=== PATIENT | male | born 1945 | race Caucasian/White ===

== ENCOUNTER 2020-02-15 06:30 | Day surgery (SDC) | payer OTHER, MEDICARE, BC ==
[~2020-02-15] VITALS: Ht 175.3 cm; Wt 86.6 kg
[~2020-02-15 06:30] MED LIST: CHLORTHALIDONE25 MG PO; COREG12.5 MG PO; COZAAR100 MG PO; LIPITOR40 MG PO
--- NOTE | 2020-02-15 08:25 | NUR ---
02/15/20 0825 Lupe Ventura 0820 PATIENT AWAKE BUT DROWSY. DENIES PAIN OR NAUSEA. OXYGEN OFF. ROOM AIR SATS >92%. PASSING GAS.
--- NOTE | 2020-02-17 11:20 | OR ---
[facility] [address] [place], [place] [address] Signed DATE OF OPERATION: 02/15/2020 SURGEON: Elias Ragland MD PREOPERATIVE DIAGNOSES: 1. Episodic rectal bleeding and grade 2 hemorrhoidal disease. 2. History of polyps of colon. POSTOPERATIVE DIAGNOSES: 1. Internal hemorrhoidal changes. 2. Flat polyp of proximal ascending colon. PROCEDURE: Total colonoscopy to cecum with mucosal lift and endoscopic tattoo marking of proximal polyp with excision by snare technique and morcellation. ANESTHESIA: Intravenous sedation, fentanyl 100 mcg and Versed 4 mg. INDICATION: This 74-year-old white man is patient of Dr. Dubon in [place]. He was seen by me in August for consideration of colonoscopy, but due to the viral pandemic, elective colonoscopies were delayed. He now presents for colonoscopy. He has had episodic rectal bleeding from time to time and he is known to have clinical findings of a grade 2 hemorrhoidal problem. He did undergo colonoscopy about 8 years ago and was said to have polyps and he has had no followup since that time. He is admitted at this time to undergo colonoscopy. He understands the risks of bleeding, infection, perforation. FINDINGS: The prep was excellent. Complete colonoscopy was undertaken of the cecum. He did have some internal hemorrhoidal changes, but there were not extensive. Of great note was a flat mucosal polyp of the proximal ascending colon. This was excised with mucosal lift technique with additional reapproximation of mucosa with EndoClips. DESCRIPTION OF PROCEDURE: The patient was brought to the endoscopy suite and placed in lateral decubitus position. Electronically Signed By: ELIAS RAGLAND MD 02/17/20 1120 PATIENT NAME: NATTY PEARSON OPERATIVE REPORT DATE OF : 49 REPORT #: [id number] PHYSICIAN: ELIAS RAGLAND MD PCP: MAXWELL DUBON MD REPORT IS CONFIDENTIAL AND NOT TO BE RELEASED WITHOUT AUTHORIZATION [facility] [address], [place] [address] Signed Given intravenous sedation to the point of slurred speech and nystagmus with full cardiopulmonary monitoring. Digital rectal examination showed normal prostate. An Olympus video colonoscope was passed in the rectum and manipulated throughout the colon, ultimately passed into the right colon. There was found to be a flat mucosal polyp of the proximal ascending colon. This measured about 2 cm in total length I think. Endomucosal resection with mucosal lift technique was deemed advisable. Using spot tattoo ink and a sclerotherapy needle, the central portion of the polyp was impaled and injected lifting the mucosa away from the underlying submucosa. Using the hot snare polypectomy technique, the polyp was then excised. Incomplete excision was noted. This engagement of the snare was undertaken and multiple morcellation excisions of the partially excised polyp was undertaken. Given the extent of the polyp and so forth, mucosal reapproximation was deemed advisable. Using Endoclip devices, a few small and a few wide mucosa were completely reapproximated. The scope was then advanced to the cecum, which was not far away and it appeared normal. The scope was then withdrawn and careful examination throughout showed no sign of other abnormalities. Retroflexed view of the rectum showed internal hemorrhoidal changes to a minor degree. The scope was removed and the patient was taken to the recovery room in good condition. CONCLUDING DIAGNOSIS: Polyp of proximal ascending colon, flat and notable. PLAN: We will review pathology of the polyp. I would recommend repeat colonoscopy in one year. Additional evaluation for hemorrhoidal disease will be undertaken as well. Elias Ragland MD JM/MODL /[id number] cc: Maxwell Dubon MD Copies: MAXWELL DUBON MD Electronically Signed By: ELIAS RAGLAND MD 02/17/20 1120 PATIENT NAME: NATTY PEARSON OPERATIVE REPORT DATE OF : 49 REPORT #: [id number] PHYSICIAN: ELIAS RAGLAND MD PCP: MAXWELL DUBON MD REPORT IS CONFIDENTIAL AND NOT TO BE RELEASED WITHOUT AUTHORIZATION [facility] [address] [place] [id number] Signed ~ Electronically Signed By: ELIAS RAGLAND MD 02/17/20 1120 PATIENT NAME: NATTY PEARSON OPERATIVE REPORT DATE OF : 49 REPORT #: [id number] PHYSICIAN: ELIAS RAGLAND MD PCP: MAXWELL DUBON MD REPORT IS CONFIDENTIAL AND NOT TO BE RELEASED WITHOUT AUTHORIZATION
--- NOTE | 2020-02-19 11:56 | PATH ---
[facility] [address] [place], [place] [address] Signed SPECIMEN(S): A ASCENDING POLYP SPECIMEN SOURCE: A. ASCENDING POLYP CLINICAL HISTORY: Colonoscopy. History of polyps. MICROSCOPIC DESCRIPTION: Histologic sections of all submitted blocks are examined by light microscopy. These findings, together with the gross examination, support the pathologic diagnosis. FINAL PATHOLOGIC DIAGNOSIS: Colon, ascending, polyp, polypectomy: - Fragments of tubular adenoma. - Negative for high-grade dysplasia or malignancy. NAL:cml:C2NR GROSS DESCRIPTION: The specimen, labeled "BP, 1," and designated on the requisition "ascending polyp," is received in formalin and consists of five andrade soft tissue polypoid fragments that measure 0.4 cm in greatest dimension. The specimen is entirely submitted in cassette (A1). Note: Specimen appears previously inked black and sectioned; submitting as received in container. AT (under the direct supervision of a pathologist) The Gross Description was prepared using a voice recognition system. The report was reviewed for accuracy; however, sound-alike word errors, addition and/or deletions may occur. If there is any question about this report, please contact Client Services. PERFORMING LABORATORY: The technical component was performed by [facility], [address] [place] [id number] (Chief Nursing Executive: Shawna Joya MD; CLIA# [id number]). [facility], [address] [address] (CLIA# [id number]). Diagnostician: Skylar Perez MD Pathologist Electronically Signed 02/19/2020 PATIENT NAME: NATTY PEARSON PATHOLOGY DATE OF : 49 REPORT #: [id number] PHYSICIAN: [facility] PCP: MAXWELL DUBON MD REPORT IS CONFIDENTIAL AND NOT TO BE RELEASED WITHOUT AUTHORIZATION [address] [address] Signed Copies: ~ PATIENT NAME: NATTY PEARSON PATHOLOGY DATE OF : 49 REPORT #: [id number] PHYSICIAN: [facility] PCP: MAXWELL DUBON MD REPORT IS CONFIDENTIAL AND NOT TO BE RELEASED WITHOUT AUTHORIZATION
== END 2020-02-15 08:55 | disposition home or self-care (01) ==
LOC: DS 06:30 → OPS 06:30 → DS 06:45 → OPS 08:55
PROVIDERS: ATTEND Surgery
PROC: 0DBK8ZZ Excision of Ascending Colon, Via Natural or Artificial Opening Endoscopic (ICD-10-PCS; 2020-02-15)
PROC: 3E0H8GC Introduction of Other Therapeutic Substance into Lower GI, Via Natural or Artificial Opening Endoscopic (ICD-10-PCS; principal; 2020-02-15 06:45)
DX: D12.2 Benign neoplasm of ascending colon (principal); K64.8 Other hemorrhoids; I10 Essential (primary) hypertension; E78.5 Hyperlipidemia, unspecified; Z86.010 Personal history of colon polyps; Z79.899 Other long term (current) drug therapy
CPT/HCPCS: 99153; G0500; J2250; J3010; J7121